=== PATIENT | male | born 1955 | race Caucasian/White ===

== ENCOUNTER 2018-06-01 22:05 | Inpatient (IN) | payer BC ==
[2018-06-01] VITALS (11 sets, daily range): BP systolic 130–168; BP diastolic 74–98
[~2018-06-01] VITALS: Ht 170.2 cm; Wt 70.0 kg
--- NOTE | 2018-06-01 22:12 | Emergency Room Report ---
History of Present Illness General Source: Patient, EMS Present Illness HPI Patient is a 62-year-old male who presented after increased chest discomfort which began approximately 30 minutes prior to arrival. Patient reported having initial pain approximately 3. This had subsequently worsened.He describes as a pressure sensation. The patient reports having prior history of hypertension. He reports becoming diaphoretic. The patient had one similar episode in the past. This had resolved spontaneously patient had been followed by Dr. Eros Medina at [facility] Allergies: Coded Allergies: ACETAMINOPHEN (Verified Allergy, Unknown, 06/01/18) OXYCODONE (Verified Allergy, Unknown, 06/01/18) Patient History Past Medical History: see triage record, HTN Reviewed Nursing Documentation: PMH: Agreed; PSxH: Agreed Review of Systems All Other Systems: negative except mentioned in HPI Physical Exam Sp02 EP Interpretation: reviewed, normal General Appearance: normal inspection, well appearing, no apparent distress, alert, GCS 15 Head: atraumatic ENT: normal ENT inspection, hearing grossly normal, normal voice Neck: normal inspection, full range of motion, supple, no bony tend Respiratory: normal inspection, lungs clear, normal breath sounds, no respiratory distress, no retraction, no wheezing Cardiovascular #1: regular rate, rhythm, no edema Gastrointestinal: normal inspection, normal bowel sounds, non tender, soft, no guarding, no hernia Genitourinary: no CVA tenderness Musculoskeletal: normal inspection, back normal, normal range of motion Neurologic: normal inspection, alert, oriented x3, responsive, neurobiologist III-XII nml as tested, motor strength/tone normal, speech normal Psychiatric: normal inspection, judgement/insight normal, mood/affect normal Skin: normal inspection, normal color, no rash Procedures Critical Care Time Critical Care Time Patient had a critical medical condition which untreated could potentially result in life or limb threatening injury. Total critical care time excluding procedures approximately 45 minutes. Medical Decision Making Diagnostic Impression: Primary Impression: ACS (acute coronary syndrome) Additional Impression: Chest pain ER Course The patient presented for chest pain. Differential diagnosis included but was not limited to acute coronary syndrome, pulmonary embolism, pneumonia, aortic dissection, shingles, pneumothorax, aortic dissection, esophageal rupture, pericarditis. Because of complexity of patient's case laboratory testing and imaging studies were ordered. The prehospital EKG showed evidence of ST elevation in the lead aVR as well as lead V1 with the diffuse ischemic changes. EKG interpreted by me showed normal sinus rhythm with a rate of 76. The patient noted to have left ventricular hypertrophy with nonspecific the ST changes as well as lateral T-wave inversion. The patient's initial troponin was noted to be negative. Patient was noted to initially have continued chest pain. The the patient was discussed with interventional cardiology at [facility] as well as the patient's primary care physician. I initially contacted [facility] for possible STEMI transfer and per physician patient did not meet STEMI criteria. [facility] stated that the patient did not meet criteria for immediate transfer for catheterization despite the patient's having dynamic EKG changes. They did recommend a CT of the chest which was performed and showed no evidence of acute aortic dissection. The patient's initial as well as repeat troponin was also noted to be negative.The patient was given IV metoprolol as well as nitroglycerin and started on nitroglycerin drip. Patient was discussed with Dr. Ayan Calderón for inpatient management. Labs Test 06/01/18 22:18 06/02/18 00:30 White Blood Count 8.7 K/UL (4.8-10.8) Red Blood Count 5.34 M/UL (4.70-6.10) Hemoglobin 16.4 G/DL (14.2-18.0) Hematocrit 47.1 % (42.0-52.0) Mean Corpuscular Volume 88 FL (80-99) Mean Corpuscular Hemoglobin 30.7 PG (27.0-31.0) Mean Corpuscular Hemoglobin Concent 34.8 G/DL (32.0-36.0) Red Cell Distribution Width 11.5 % (11.6-14.8) Platelet Count 209 K/UL (150-450) Mean Platelet Volume 9.6 FL (6.5-10.1) Neutrophils (%) (Auto) 56.0 % (45.0-75.0) Lymphocytes (%) (Auto) 30.0 % (20.0-45.0) Monocytes (%) (Auto) 10.8 % (1.0-10.0) Eosinophils (%) (Auto) 2.1 % (0.0-3.0) Basophils (%) (Auto) 1.2 % (0.0-2.0) Prothrombin Time 10.8 SEC (9.30-11.50) Prothromb Time International Ratio 1.0 (0.9-1.1) Activated Partial Thromboplast Time 25 SEC (23-33) Sodium Level 138 MMOL/L (136-145) Potassium Level 3.3 MMOL/L (3.5-5.1) Chloride Level 101 MMOL/L (98-107) Carbon Dioxide Level 28 MMOL/L (21-32) Anion Gap 9 mmol/L (5-15) Blood Urea Nitrogen 30 mg/dL (7-18) Creatinine 1.5 MG/DL (0.55-1.30) Estimat Glomerular Filtration Rate 47.3 mL/min (>60) Glucose Level 169 MG/DL (74-106) Calcium Level 10.2 MG/DL (8.5-10.1) Total Bilirubin 0.3 MG/DL (0.2-1.0) Aspartate Amino Transf (AST/SGOT) 31 U/L (15-37) Alanine Aminotransferase (ALT/SGPT) 40 U/L (12-78) Alkaline Phosphatase 50 U/L (46-116) Total Creatine Kinase 137 U/L (26-308) Creatine Kinase MB 0.8 NG/ML (0.0-3.6) Creatine Kinase MB Relative Index 0.5 Pro-B-Type Natriuretic Peptide 46 pg/mL (0-125) Total Protein 8.0 G/DL (6.4-8.2) Albumin 4.2 G/DL (3.4-5.0) Globulin 3.8 g/dL Albumin/Globulin Ratio 1.1 (1.0-2.7) Troponin I 0.000 ng/mL (0.000-0.056) EKG Diagnostic Results Rate: normal Rhythm: NSR ST Segments: no acute changes Rhythm Strip Diag. Results EP Interpretation: yes Rhythm: NSR, no PVC's, no ectopy Status: unchanged Disposition: ADMITTED INPATIENT Condition: Serious Elan Villa MD Jun 01, 2018 22:12
[2018-06-01] MEDS ORDERED: Labetalol 5mg/ml 20ml vial IV ONE (22:15)
[2018-06-01] MEDS: Metoprolol 5mg/5ml Inj IVP SCH ×2 (22:21→22:44)
[2018-06-01 22:53] LABS: BASOPHILS % (AUTO) 1.2 % (0.0-2.0); EOSINOPHILS % (AUTO) 2.1 % (0.0-3.0); HEMATOCRIT 47.1 % (42.0-52.0); HEMOGLOBIN 16.4 G/DL (14.2-18.0); MEAN CORPUSCULAR VOLUME 88 FL (80-99); MONOCYTES % (AUTO) 10.8 % (1.0-10.0); PLATELET COUNT 209 K/UL (150-450); RED BLOOD COUNT 5.34 M/UL (4.70-6.10); RED CELL DISTRIBUTION WIDTH 11.5 % (11.6-14.8); WHITE BLOOD COUNT 8.7 K/UL (4.8-10.8)
[2018-06-01] MEDS ORDERED: Nitroglycerin Subl 0.4mg tab SL PRN (23:00)
[2018-06-01 23:09] LABS: ANION GAP 9 mmol/L (5-15); BLOOD UREA NITROGEN 30 mg/dL (7-18); CALCIUM 10.2 MG/DL (8.5-10.1); CARBON DIOXIDE 28 MMOL/L (21-32); CHLORIDE 101 MMOL/L (98-107); CREATININE 1.5 MG/DL (0.55-1.30); POTASSIUM 3.3 MMOL/L (3.5-5.1); SODIUM 138 MMOL/L (136-145)
--- NOTE | 2018-06-01 23:15 | Diagnostic Imaging Report ---
EXAM: XR Chest, 1 View CLINICAL HISTORY: CP TECHNIQUE: Frontal view of the chest. COMPARISON: No relevant prior studies available. FINDINGS: Lungs: Unremarkable. No consolidation. Pleural space: Unremarkable. No pneumothorax. Heart: Unremarkable. No cardiomegaly. Mediastinum: Unremarkable. Bones/joints: Unremarkable. IMPRESSION: Normal chest x-ray.
[2018-06-01 23:26] LABS: ALANINE AMINOTRANSFERASE 40 U/L (12-78); ALBUMIN 4.2 G/DL (3.4-5.0); ALBUMIN/GLOBULIN RATIO 1.1 (1.0-2.7); ALKALINE PHOSPHATASE 50 U/L (46-116); ASPARTATE AMINO TRANSFERASE 31 U/L (15-37); BILIRUBIN,TOTAL 0.3 MG/DL (0.2-1.0); CKMB 0.8 NG/ML (0.0-3.6); CREATINE KINASE 137 U/L (26-308)
[2018-06-01] MEDS ORDERED: Nitroglycerin 50mg/250ml btl 250 ML IV SCH (23:30)
[2018-06-01] MEDS ORDERED: Isovue-370 150ml vial INJ PRN (23:30)
[2018-06-01] MEDS ORDERED: Sodium Chloride 500ML 500 ML IV ONE (23:45)
[2018-06-02] VITALS (32 sets, daily range): BP systolic 112–163; BP diastolic 54–107
--- NOTE | 2018-06-02 01:01 | Diagnostic Imaging Report ---
EXAM: CT Angiography Chest With Intravenous Contrast CLINICAL HISTORY: CP TECHNIQUE: Axial computed tomographic angiography images of the chest with intravenous contrast using pulmonary embolism protocol. CTDI is 0.15, 17. 01 mGy and DLP is 1094 mGy-cm. One or more of the following dose reduction techniques were used: automated exposure control, adjustment of the mA and/or kV according to patient size, use of iterative reconstruction technique. MIP reconstructed images were created and reviewed. COMPARISON: No relevant prior studies available. FINDINGS: Pulmonary arteries: No pulmonary embolus. Aorta: No thoracic aortic dissection or aneurysm. Lungs: Dependent atelectasis. No mass. Pleural space: Unremarkable. No significant effusion. No pneumothorax. Heart: Unremarkable. No cardiomegaly. No significant pericardial effusion. No evidence of RV dysfunction. Bones/joints: No acute fracture. No dislocation. Soft tissues: Unremarkable. Lymph nodes: Unremarkable. No enlarged lymph nodes. IMPRESSION: No acute findings.
[2018-06-02] MEDS ORDERED: Heparin 5000 units/ml inj IV ONE ×2 (01:45→09:30)
[2018-06-02] MEDS ORDERED: Heparin 25,000u/D5W 500ml 500 ML IV SCH ×3 (01:45→09:30)
[2018-06-02] MEDS ORDERED: NORVASC2.5 MG ORAL (02:00)
[2018-06-02] MEDS ORDERED: NADOLOL40 MG ORAL (02:00)
[2018-06-02] MEDS ORDERED: ASPIRIN81 MG ORAL (02:00)
[2018-06-02] MEDS ORDERED: MAXZIDE 37.5 M1 EAC1 PO (02:00)
[2018-06-02] MEDS ORDERED: Nitroglycerin 50mg/250ml btl 250 ML IV SCH (03:45)
[2018-06-02 06:14] LABS: BASOPHILS % (AUTO) 0.9 % (0.0-2.0); EOSINOPHILS % (AUTO) 1.9 % (0.0-3.0); HEMATOCRIT 44.1 % (42.0-52.0); HEMOGLOBIN 15.8 G/DL (14.2-18.0); LYMPHOCYTES % (AUTO) 26.8 % (20.0-45.0); MEAN CORPUSCULAR VOLUME 88 FL (80-99); MONOCYTES % (AUTO) 10.7 % (1.0-10.0); NEUTROPHILS % (AUTO) 59.7 % (45.0-75.0); PLATELET COUNT 194 K/UL (150-450); RED BLOOD COUNT 5.01 M/UL (4.70-6.10); RED CELL DISTRIBUTION WIDTH 11.6 % (11.6-14.8); WHITE BLOOD COUNT 7.2 K/UL (4.8-10.8)
[2018-06-02 06:24] LABS: ALANINE AMINOTRANSFERASE 34 U/L (12-78); ALBUMIN 3.6 G/DL (3.4-5.0); ALKALINE PHOSPHATASE 38 U/L (46-116); ANION GAP 9 mmol/L (5-15); ASPARTATE AMINO TRANSFERASE 24 U/L (15-37); BILIRUBIN,TOTAL 0.3 MG/DL (0.2-1.0); BLOOD UREA NITROGEN 27 mg/dL (7-18); CALCIUM 9.3 MG/DL (8.5-10.1); CARBON DIOXIDE 26 MMOL/L (21-32); CHLORIDE 105 MMOL/L (98-107); CREATININE 1.3 MG/DL (0.55-1.30); POTASSIUM 3.6 MMOL/L (3.5-5.1); SODIUM 140 MMOL/L (136-145)
[2018-06-02] MEDS ORDERED: Triamterene/Hctz 37.5/25 cap ORAL SCH (09:00)
[2018-06-02] MEDS ORDERED: Aspirin EC 81mg tab ORAL SCH (09:00)
--- NOTE | 2018-06-02 09:01 | History & Physical ---
History and Physical History & Physicial DICT # [id number] Dick Calderón MD Jun 02, 2018 09:01
[2018-06-02 09:26] LABS: CHOLESTEROL 138 MG/DL (< 200); HDL CHOLESTEROL 43 MG/DL (40-60); TRIGLYCERIDES 88 MG/DL (30-150)
--- NOTE | 2018-06-02 12:55 | Diagnostic Imaging Report ---
EXAM: US Retroperitoneal Limited, Renal CLINICAL HISTORY: HTN TECHNIQUE: Real-time ultrasound of the retroperitoneum (limited) with image documentation. COMPARISON: No relevant prior studies available. FINDINGS: Right kidney: Normal in size, 11.1 cm in length. Preserved cortical thickness. No hydronephrosis. Normal intrarenal resistive indices. Interrogation of the renal artery demonstrates no clear stenosis or other abnormality. The right renal cyst mentioned in the hand umbrella tipper's report is not identified on the submitted images. Left kidney: Normal in size, 10.7 cm in length. Preserved cortical thickness. No hydronephrosis. Normal intrarenal resistive indices. Interrogation of the renal artery demonstrates no clear stenosis or other abnormality. IMPRESSION: Unremarkable renal ultrasound.
--- NOTE | 2018-06-02 13:23 | Consultation ---
History of Present Illness General Date patient seen: Jun 02, 2018 Time patient seen: 13:14 Chief Complaint: Chest Pain Present Illness HPI Coverage for Rigobertoie 62 year old male pt with chest tightness, pain 2/10 w/ radiation to left subclavical region. Pt VSS on scene but presented w/ hypertension (210/ 108), no difficulty breathing. EMS administered 324 ASA and 1 sublingual NTG. Pt had relief of chest tightness. Troponin negative x2, CXR clear, CTA negative for PE, renal ultrasound unremarkable. Vitals stable. Allergies: Coded Allergies: ACETAMINOPHEN (Verified Allergy, Unknown, 06/01/18) OXYCODONE (Verified Allergy, Unknown, 06/01/18) Medication History Scheduled Amlodipine Besylate (Norvasc), 2.5 MG ORAL DAILY, (Reported) Aspirin* (Aspirin*), 81 MG ORAL DAILY, (Reported) Nadolol* (Corgard*), 40 MG ORAL DAILY, (Reported) Miscellaneous Medications Triamterene/Hydrochlorothiazid (Maxzide 37.5 Mg-25 Mg Tablet), 1 EACH PO, ( Reported) Patient History Healthcare decision maker Resuscitation status Full Code Advanced Directive on File No Review of Systems Constitutional: Reports: no symptoms Eye: Reports: no symptoms ENT: Reports: no symptoms Respiratory: Reports: no symptoms Cardiovascular: Reports: chest pain Gastrointestinal: Reports: no symptoms Genitourinary: Reports: no symptoms Musculoskeletal: Reports: no symptoms Skin: Reports: no symptoms Psychiatric: Reports: no symptoms Neurological: Reports: no symptoms Endocrine: Reports: no symptoms Hematologic/Lymphatic: Reports: no symptoms Physical Exam General Appearance: no apparent distress, alert Lines, tubes and drains: peripheral HEENT: normocephalic, atraumatic Neck: non-tender, normal alignment Respiratory/Chest: chest wall non-tender, lungs clear Cardiovascular/Chest: normal peripheral pulses Abdomen: normal bowel sounds, non tender Extremities: normal range of motion, non-tender Skin Exam: normal pigmentation Neurologic: bank officer II-XII grossly normal Last 24 Hour Vital Signs Date Time Temp Pulse Resp B/P (MAP) Pulse Ox O2 Delivery O2 Flow Rate FiO2 06/02/18 12:30 97.8 83 19 145/78 (100) 97 97.8 06/02/18 12:00 75 06/02/18 12:00 Room Air 7/28/18 12:00 76 20 163/85 (111) 97 06/02/18 11:30 77 20 151/85 (107) 97 06/02/18 11:00 76 18 147/103 (118) 97 06/02/18 10:30 74 18 147/107 (120) 97 06/02/18 10:00 68 19 134/71 (92) 97 06/02/18 09:30 70 20 156/80 (105) 97 06/02/18 09:00 68 134/71 06/02/18 09:00 71 16 150/83 (105) 97 06/02/18 08:30 73 18 132/92 (105) 97 06/02/18 08:00 Room Air 06/02/18 08:00 72 06/02/18 08:00 71 18 135/77 (96) 97 06/02/18 07:30 67 16 155/78 (103) 97 06/02/18 07:00 67 16 150/73 (98) 97 06/02/18 06:30 60 16 139/72 (94) 95 06/02/18 06:00 61 17 142/71 (94) 97 06/02/18 05:30 60 16 131/66 (87) 96 06/02/18 05:00 59 16 125/69 (87) 96 06/02/18 04:30 60 14 128/90 (103) 95 06/02/18 04:30 128/90 06/02/18 04:00 Room Air 06/02/18 04:00 98.5 61 15 112/62 (79) 95 98.5 06/02/18 03:30 66 18 112/65 (81) 94 06/02/18 03:06 66 18 132/70 (90) 96 06/02/18 02:58 Room Air 06/02/18 02:55 65 06/02/18 02:50 98.8 65 18 136/71 (92) 95 98.8 06/02/18 02:40 98.1 72 18 125/62 96 Room Air 98.1 06/02/18 02:00 72 18 125/62 96 Room Air 06/02/18 01:05 73 15 134/63 95 Room Air 06/02/18 00:30 74 18 123/67 9 Room Air 06/02/18 00:00 78 18 125/78 98 Room Air 06/01/18 23:53 144/78 06/01/18 23:30 80 16 131/75 97 Room Air 06/01/18 23:25 80 18 130/74 95 Room Air 06/01/18 23:12 150/79 06/01/18 22:55 80 18 150/92 95 Room Air 06/01/18 22:50 84 20 155/96 96 Room Air 06/01/18 22:45 83 22 152/94 94 Room Air 06/01/18 22:44 77 164/75 06/01/18 22:40 84 20 148/90 96 Room Air 06/01/18 22:35 72 18 138/79 97 Room Air 06/01/18 22:30 76 20 144/80 97 Room Air 06/01/18 22:25 80 20 157/82 96 Room Air 06/01/18 22:21 89 165/79 06/01/18 22:18 86 165/79 06/01/18 22:15 98.1 78 18 168/98 97 Room Air 98.1 06/01/18 22:10 72 18 Room Air 06/01/18 22:10 98.1 75 18 165/84 98 Room Air 98.1 06/01/18 22:03 98.3 76 18 180/104 98 Room Air 98.2 Intake and Output 06/01/18 06/02/18 19:00 07:00 Intake Total 719.062 ml Output Total 380 ml Balance 339.062 ml Intake Oral 170 ml IV Total 549.062 ml Output Urine Total 380 ml # Voids 4 Laboratory Tests Test 06/01/18 22:18 06/02/18 00:30 06/02/18 04:51 06/02/18 07:45 White Blood Count 8.7 K/UL (4.8-10.8) 7.2 K/UL (4.8-10.8) Red Blood Count 5.34 M/UL (4.70-6.10) 5.01 M/UL (4.70-6.10) Hemoglobin 16.4 G/DL (14.2-18.0) 15.8 G/DL (14.2-18.0) Hematocrit 47.1 % (42.0-52.0) 44.1 % (42.0-52.0) Mean Corpuscular Volume 88 FL (80-99) 88 FL (80-99) Mean Corpuscular Hemoglobin 30.7 PG (27.0-31.0) 31.5 PG (27.0-31.0) H Mean Corpuscular Hemoglobin Concent 34.8 G/DL (32.0-36.0) 35.7 G/DL (32.0-36.0) Red Cell Distribution Width 11.5 % (11.6-14.8) L 11.6 % (11.6-14.8) Platelet Count 209 K/UL (150-450) 194 K/UL (150-450) Mean Platelet Volume 9.6 FL (6.5-10.1) 9.5 FL (6.5-10.1) Neutrophils (%) (Auto) 56.0 % (45.0-75.0) 59.7 % (45.0-75.0) Lymphocytes (%) (Auto) 30.0 % (20.0-45.0) 26.8 % (20.0-45.0) Monocytes (%) (Auto) 10.8 % (1.0-10.0) H 10.7 % (1.0-10.0) H Eosinophils (%) (Auto) 2.1 % (0.0-3.0) 1.9 % (0.0-3.0) Basophils (%) (Auto) 1.2 % (0.0-2.0) 0.9 % (0.0-2.0) Prothrombin Time 10.8 SEC (9.30-11.50) Prothromb Time International Ratio 1.0 (0.9-1.1) Activated Partial Thromboplast Time 25 SEC (23-33) 44 SEC (23-33) H Sodium Level 138 MMOL/L (136-145) 140 MMOL/L (136-145) Potassium Level 3.3 MMOL/L (3.5-5.1) L 3.6 MMOL/L (3.5-5.1) Chloride Level 101 MMOL/L (98-107) 105 MMOL/L (98-107) Carbon Dioxide Level 28 MMOL/L (21-32) 26 MMOL/L (21-32) Anion Gap 9 mmol/L (5-15) 9 mmol/L (5-15) Blood Urea Nitrogen 30 mg/dL (7-18) H 27 mg/dL (7-18) H Creatinine 1.5 MG/DL (0.55-1.30) H 1.3 MG/DL (0.55-1.30) Estimat Glomerular Filtration Rate 47.3 mL/min (>60) 55.8 mL/min (>60) Glucose Level 169 MG/DL (74-106) H 118 MG/DL (74-106) H Calcium Level 10.2 MG/DL (8.5-10.1) H 9.3 MG/DL (8.5-10.1) Total Bilirubin 0.3 MG/DL (0.2-1.0) 0.3 MG/DL (0.2-1.0) Aspartate Amino Transf (AST/SGOT) 31 U/L (15-37) 24 U/L (15-37) Alanine Aminotransferase (ALT/SGPT) 40 U/L (12-78) 34 U/L (12-78) Alkaline Phosphatase 50 U/L (46-116) 38 U/L (46-116) L Total Creatine Kinase 137 U/L (26-308) Creatine Kinase MB 0.8 NG/ML (0.0-3.6) Creatine Kinase MB Relative Index 0.5 Troponin I 0.000 ng/mL (0.000-0.056) 0.000 ng/mL (0.000-0.056) 0.003 ng/mL (0.000-0.056) Pro-B-Type Natriuretic Peptide 46 pg/mL (0-125) Total Protein 8.0 G/DL (6.4-8.2) 7.1 G/DL (6.4-8.2) Albumin 4.2 G/DL (3.4-5.0) 3.6 G/DL (3.4-5.0) Globulin 3.8 g/dL 3.5 g/dL Albumin/Globulin Ratio 1.1 (1.0-2.7) 1.0 (1.0-2.7) Hemoglobin A1c 5.8 % (4.3-6.0) Triglycerides Level 88 MG/DL (30-150) Cholesterol Level 138 MG/DL (< 200) LDL Cholesterol 96 mg/dL (<100) HDL Cholesterol 43 MG/DL (40-60) Cholesterol/HDL Ratio 3.2 (3.3-4.4) L Cortisol Pending Height (Feet): 5 Height (Inches): 7.00 Weight (Pounds): 157 Medications Current Medications Medications (Trade) Dose Ordered Sig/Michela Route PRN Reason Start Time Stop Time Status Last Admin Dose Admin Amlodipine Besylate (Norvasc) 2.5 mg DAILY ORAL 06/02/18 09:00 07/02/18 08:59 Aspirin (Ecotrin) 81 mg DAILY ORAL 06/02/18 09:00 07/02/18 08:59 06/02/18 09:43 Fenofibrate (Tricor) 145 mg DAILY ORAL 06/02/18 09:30 07/02/18 09:29 06/02/18 09:30 Heparin Sodium/ Dextrose 500 ml @ 22.72 mls/ hr adjust per protocol IV 06/02/18 09:30 07/02/18 04:29 Nitroglycerin 250 ml @ 0 mls/hr Q24H IV 06/02/18 03:45 07/02/18 03:44 06/02/18 04:30 Patient Own Medication (Patient's Own Med) 1 ea DAILY ORAL 06/02/18 12:00 07/02/18 11:59 06/02/18 11:49 Triamterene/HCTZ (Dyazide) 1 cap DAILY ORAL 06/02/18 09:00 07/02/18 08:59 06/02/18 09:43 Assessment/Plan Status: stable, progressing Assessment/Plan Assessment Chest pain Hypertensive urgency TC Hyperglycemia Plan Serial EKG/Troponin Echocardiogram BP control Aspirin Stress test nitro prn CP Lipitor Glucose control Luciano Arevalo M.D. Jun 02, 2018 13:23
[2018-06-02] MEDS ORDERED: NORVASC10 MG ORAL (16:33)
[2018-06-02] MEDS ORDERED: Zolpidem 5mg tab ORAL PRN ×2 (18:15)
--- NOTE | 2018-06-02 18:30 | History and Physical Report ---
DATE OF ADMISSION: 06/02/2018 CHIEF COMPLAINT: Chest discomfort. HISTORY OF PRESENT ILLNESS: The patient is a 62-year-old male nonsmoker with a 1-year history of labile hypertension, currently on Maxzide and Norvasc, who was at a show when he started feeling some generalized malaise and lightheadedness. He went home and had some vague chest discomfort. EMS was notified and the patient was brought into the emergency department. In the emergency department, his troponins were negative x3. He had nonspecific ST changes, but no evidence of acute ischemia. There was an initial plan for transfer to [facility], but the business continuity strategy director on-call felt that this was not ACS. The patient had a CT angio that was negative for dissection and venous thromboembolism. He had hypertensive urgency with pressures over 200. Overnight, he has been on nitroglycerin drip and heparin drip and since transferred to the ICU. He currently denies any complaints. No chest pain. No fevers or chills. No headaches, dizziness, nausea, vomiting, diarrhea, abdominal pain, or other complaints. PAST MEDICAL HISTORY: 1. Hypertension. 2. Hyperlipidemia. 3. BPH. PAST SURGICAL HISTORY: None. ALLERGIES: Acetaminophen and oxycodone. MEDICATIONS: 1. Norvasc 2.5 mg daily. 2. Aspirin 81 mg daily. 3. Nadolol (Corgard) 40 mg daily. 4. Maxzide 37.5/25 mg 1 tablet daily. SOCIAL HISTORY: He has an associate attorney. No tobacco, alcohol, or drug use. He is . FAMILY HISTORY: Noncontributory. REVIEW OF SYSTEMS: Negative other than history of present illness. PHYSICAL EXAMINATION: VITAL SIGNS: Temperature 98.5 degrees, pulse 72, blood pressure 155/78, respiratory rate 16, and saturating 97% on room air. GENERAL: He is well-developed, well-nourished male in no acute distress. Awake, alert, and oriented x3. HEENT: Normocephalic and atraumatic. NECK: Supple without lymphadenopathy or JVD. CHEST: Clear to auscultation bilaterally without wheezing, rales, or rhonchi. HEART: Regular rate and rhythm. ABDOMEN: Soft, nontender, and nondistended. EXTREMITIES: No cyanosis, clubbing, or edema. ANCILLARY DATA: White count 8.7, hemoglobin 16.4, and platelet count 209. INR 1.0. Sodium 140, potassium 3.6, chloride 105, bicarbonate 26, BUN 27, creatinine 1.3, and glucose 118. Calcium 9.3. AST 24, ALT 34, and alkaline phosphatase 38. Troponin 0.000, 0.000, and 0.003. LFTs within normal limits. Chest x-ray done and reviewed by myself is unremarkable. CT angiogram of the chest is negative for PE and dissection. No other abnormalities are noted. ASSESSMENT: The patient is a 62-year-old male nonsmoker with a history of [id number] hypertension and BPH, presenting with hypertensive urgency. He has been ruled out for ACS with serial EKG, troponin, and CT angiogram was negative for dissection or PE. PROBLEM LIST: 1. Hypertensive urgency/emergency. 2. Atypical chest pain secondary to above. 3. Labile hypertension. 4. Acute kidney injury, improved. 5. BPH. 6. History of allergic rhinitis and chronic cough. TREATMENT PLAN: 1. Admit to ICU. 2. Continue nitroglycerin drip for now. 3. Resume home blood pressure medications ( Dyazide, Norvasc, and Corgard). 4. Follow up echocardiogram. 5. Cardiology evaluation. 6. We will check pheochromocytoma labs and a renal artery ultrasound to look for secondary causes of hypertension. 7. Monitor volumes. 8. DVT prophylaxis. The patient was started on IV heparin in the ER. I suspect this can be . We will await cardiology evaluation and then will switch to heparin subcutaneous. 9. The patient can be transferred out of the ICU once he is weaned off the nitroglycerin drip. Dick Calderón M.D. DR: ELIJAH JOB#: [id number] CC:
[2018-06-02] MEDS: Heparin 5000 units/ml inj SUBQ SCH (20:54)
[2018-06-02] MEDS ORDERED: Heparin 5000 units/ml inj SUBQ SCH (21:00)
[2018-06-03] MEDS ORDERED: Nitroglycerin 50mg/250ml btl 250 ML IV SCH (03:45)
[2018-06-03 04:00] VITALS: BP 119/77
[2018-06-03 08:00] VITALS: BP 151/92
[2018-06-03] MEDS: Heparin 5000 units/ml inj SUBQ SCH (08:20)
[2018-06-03] MEDS ORDERED: Aspirin EC 81mg tab ORAL SCH (09:00)
[2018-06-03] MEDS ORDERED: Triamterene/Hctz 37.5/25 cap ORAL SCH (09:00)
--- NOTE | 2018-06-03 14:38 | Cardiology Report ---
APPROVED REPORT EKG Measurement Heart [id number] [id number] Normal sinus rhythm Moderate voltage criteria for LVH, may be normal variant Nonspecific T wave abnormality Abnormal ECG
--- NOTE | 2018-06-03 14:45 | Cardiology Report ---
APPROVED REPORT EKG Measurement Heart [id number] VT 130P-1 [id number] Poor data quality, interpretation may be adversely affected Normal sinus rhythm Moderate voltage criteria for LVH, may be normal variant Nonspecific T wave abnormality Abnormal ECG
--- NOTE | 2018-06-03 14:48 | Cardiology Report ---
APPROVED REPORT EKG Measurement Heart [id number] ME [id number] Normal sinus rhythm Possible Left atrial enlargement Left ventricular hypertrophy Nonspecific ST and T wave abnormality Abnormal ECG
--- NOTE | 2018-06-05 13:17 | Discharge Summary ---
Discharge Summary Discharge Summary _ DATE OF ADMISSION: 06/02/2018 DATE OF DISCHARGE: REASON FOR ADMISSION: 62 years old male with past medical history significant for hypertension, hyperlipidemia, BPH,nonsmoker, presented with lightheadedness and generalized malaise. Patient reported one year history of labile hypertension. Patient was taking at home Maxide and Norvasc. Upon elution in ED, troponin was negative . EKG revealed nonspecific ST changes, no evidence of acute ischemia. CTA of the chest revealed no acute pathology : no pulmonary emboli, no dissection.infection. Vital signs revealed severely elevated blood pressure, consistent with hypertensive urgency. Patient denied chest pain, no fever, no chills, no headache, or dizziness. No nausea or vomiting , no diarrhea , no abdominal pain. Patient was diagnosed with chest pain, hypertensive urgency. Patient was stated on nitroglycerine drip and heparin drip and was admitted overnight to ICU. CONSULTANTS: rounder and backer dr. Arevalo [facility] COURSE: Patient was placed on nitroglycerin drip initially and was admitted to ICU. Antihypertensive home medications resumed. Serial troponin 3 were negative . EKG revealed no acute ischemic changes. Patient was ruled out for acute DC. Heparin drip stopped. No further complains of chest pain. After blood pressure stabilized, patient was weaned off nitroglycerin drip and moved out of ICU to telemetry. Cardiology evaluation was requested. Lipid panel was stable.TriCor was continued . Antiplatelet therapy with aspirin was continued . Blood pressure stabilized with multiple regimen of calcium channel asael, beta asael and Dyazide. Venous duplex bilateral lower extremity was negative CTA of the chest revealed no evidence of pulmonary emboli or other acute pathology. Renal artery ultrasound was negative. Chest pain was atypical, likely secondary to hypertensive urgency. Blood pressure stabilized . Noted elevated glucose, hemoglobin A1c 5.8, places him at prediabetic category. Patient was counseled on no concentrated sweets diet. Recommended ECHO stress test as outpatient along with outpatient workup to rule out pheochromocytoma. Patient clinically improved chest pain resolved blood pressures nebulized patient was ready for discharge home m Due toDue to rapid and unexpected improvement in patient's condition, the patient was discharged in one day. FINAL DIAGNOSES: Hypertensive urgency A typical chest pain secondary to hypertensive urgency Labile hypertension Acute kidney injury BPH History of allergic rhinitis and chronic cough DISCHARGE MEDICATIONS: See Medication Reconciliation list. DISCHARGE INSTRUCTIONS: Patient was discharged home. Outpatient workup for pheochromocytoma recommended. Outpatient echo stress test. I have been assigned to dictate discharge summary for this account. I was not involved in the patient's management. Jessika Crawley NP Jun 05, 2018 13:17
== END 2018-06-03 10:03 | disposition home or self-care (01) | DRG 305 ==
LOC: EDBD 22:05 → EMR 22:24 → ICU 06-02 00:06 → EDBEDREQ 06-02 01:15 → 2E 06-02 16:46
DX: I16.0 Hypertensive urgency (principal); N17.9 Acute kidney failure, unspecified; R07.89 Other chest pain; E78.5 Hyperlipidemia, unspecified; N40.0 Benign prostatic hyperplasia without lower urinary tract symptoms; Z88.6 Allergy status to analgesic agent
CPT/HCPCS: 36415; 71045; 71275; 80053; 80061; 82533; 82550; 82553; 82962; 83036; 83880; 84484; 85025; 85610; 85730; 86850; 86900; 86901; 93005; 93306; 93970; 93975